=== PATIENT | male | born 1955 | race Caucasian/White ===

== ENCOUNTER 2022-01-11 15:45 | Emergency (ER) | payer MEDICARE, OTHER ==
--- NOTE | 2022-01-11 16:12 | ERPHSYRPT ---
- History of Present Illness Time Seen by Provider: 01/11/22 16:12 Historian: patient Exam Limitations: no limitations Physician History: This is a 66-year-old white male patient of Dr. Mason who for over a week has had abdominal pain with nausea vomiting and bloating of his abdomen. Patient was seen at [facility] in [facility] this past Sunday prior to arrival. He was diagnosed with nausea vomiting and low potassium level. He was provided with prescription for both Zofran and potassium supplementation. Patient does have a significant cardiac history. He has no chest pain or shortness of breath at this time. His collar tailor is Dr. Torres Timing/Duration: today, worse Abdominal Pain Onset Location: generalized abdomen Pain Radiation: no radiation Severity of Pain-Max: moderate Severity of Pain-Current: mild Modifying Factors: Improves With: vomiting (To moderate) Associated Symptoms: nausea, vomiting, No chest pain, No shortness of breath Previous symptoms: same symptoms as today, recently seen, recently treated Allergies/Adverse Reactions: No Known Drug Allergies Allergy (Unverified 01/11/22 17:10) Travel Risk - International Travel Have you traveled outside of the country in past 3 weeks: No - Coronavirus Screening Are you exhibiting any of the following symptoms?: No Close contact with a COVID-19 positive Pt in past 14-21 Days: No - Review of Systems Constitutional: No Symptoms Eyes: No Symptoms Ears, Nose, & Throat: No Symptoms Respiratory: No Symptoms Cardiac: No Symptoms Abdominal/Gastrointestinal: Abdominal Pain, Nausea, Vomiting, Appetite Changes, No Diarrhea, No Constipation Genitourinary Symptoms: No Symptoms Musculoskeletal: No Symptoms Skin: No Symptoms Neurological: No Symptoms Psychological: No Symptoms Endocrine: No Symptoms Hematologic/Lymphatic: No Symptoms Immunological/Allergic: No Symptoms All Other Systems: Reviewed and Negative - Past Medical History Pertinent Past Medical History: Yes - Nursing Vital Signs Nursing Vital Signs: Initial Vital Signs Temperature 97.2 F 01/11/22 17:02 Pulse Rate 67 01/11/22 17:02 Respiratory Rate 18 01/11/22 17:02 Blood Pressure 154/102 01/11/22 17:02 O2 Sat by Pulse Oximetry 97 01/11/22 17:02 Pain Scale Pain Intensity 5 - Physical Exam General Appearance: no apparent distress, alert, anxiety, obese Eye Exam: PERRL/EOMI, eyes nml inspection Ears, Nose, Throat Exam: normal ENT inspection, moist mucous membranes Neck Exam: normal inspection, non-tender, supple, full range of motion Respiratory Exam: normal breath sounds, lungs clear, airway intact, No chest tenderness, No respiratory distress Cardiovascular Exam: regular rate/rhythm, normal heart sounds, normal peripheral pulses Gastrointestinal/Abdomen Exam: soft, normal bowel sounds, tenderness (Mild diffuse), distention (Mild diffuse), guarding (Mild diffuse with palpation), No rebound Rectal Exam: not done Back Exam: normal inspection, normal range of motion, No CVA tenderness, No vertebral tenderness Extremity Exam: normal inspection, normal range of motion, pelvis stable Neurologic Exam: alert, oriented x 3, cooperative, press leader II-XII nml as tested, normal mood/affect, nml cerebellar function, nml station & gait, sensation nml Skin Exam: normal color, warm, dry Lymphatic Exam: No adenopathy SpO2 Interpretation: normal O2 Delivery: Room Air - Course Nursing assessment & vital signs reviewed: Yes EKG Interpreted by Me: RATE (62), Sinus Rhythm, Left [place] Deviation, NORMAL INTERVALS, NORMAL QRS, NORMAL ST-T, Other (Acute ischemic changes on today's EKG.) Ordered Tests: Active Orders 24 hr Category Date Time Status EKG-ER Only STAT Care 01/11/22 16:57 Active IV Insertion STAT Care 01/11/22 16:57 Active ABDOMEN AND PELVIS W/0 CONTRAS [CT] Stat Exams 01/11/22 17:00 Taken AMYLASE Stat Lab 01/11/22 16:50 Completed CBC W DIFF Stat Lab 01/11/22 16:50 Completed CMP Stat Lab 01/11/22 16:50 Completed LIPASE Stat Lab 01/11/22 16:50 Completed Lactic Acid Stat Lab 01/11/22 17:22 Completed TROPONIN Q4H Lab 01/11/22 16:50 Completed TROPONIN Q4H Lab 01/11/22 21:00 Ordered TROPONIN Q4H Lab 01/12/22 01:00 Ordered UA W/RFX CULTURE Stat Lab 01/11/22 17:06 Completed Medication Summary Discontinued Medications Generic Name Dose Route Start Last Admin Trade Name Freq PRN Reason Stop Dose Admin Hydromorphone HCl 1 mg 01/11/22 16:57 01/11/22 18:09 Hydromorphone 1 Mg/1ml Inj 1 Mg/Ml Syringe IV 01/11/22 16:58 1 mg STAT ONE Administration Hydromorphone HCl Confirm 01/11/22 18:01 Hydromorphone 1 Mg/1ml Inj 1 Mg/Ml Syringe Administered 01/11/22 18:02 Dose 1 mg .ROUTE .STK-MED ONE Sodium Chloride 1,000 mls @ 999 mls/hr 01/11/22 16:57 01/11/22 18:05 Sodium Chloride 0.9% 1000 Ml IV 01/11/22 17:57 999 mls/hr .Q1H1M STA Administration Sodium Chloride Confirm 01/11/22 18:01 Sodium Chloride 0.9% 1000 Ml Administered 01/11/22 18:02 Dose 1,000 mls @ ud .ROUTE .STK-MED ONE Ondansetron HCl 4 mg 01/11/22 16:57 01/11/22 18:07 Ondansetron Hcl 4 Mg/2 Ml Vial IV 01/11/22 16:58 4 mg STAT ONE Administration Ondansetron HCl Confirm 01/11/22 18:01 Ondansetron Hcl 4 Mg/2 Ml Vial Administered 01/11/22 18:02 Dose 4 mg .ROUTE .STK-MED ONE Lab/Rad Data: Laboratory Result Diagrams 01/11/22 16:50 01/11/22 16:50 Laboratory Results 01/11/22 01/11/22 01/11/22 Range/Units 17:22 17:06 16:50 WBC (4.0-10.5) x10^3/uL RBC (4.1-5.6) x10^6/uL Hgb (12.5-18.0) g/dL Hct (42-50) % MCV (78-100) fL MCH (26-32) pg MCHC (32-36) g/dL RDW (11.5-14.0) % Plt Count (150-450) x10^3/uL MPV (7.5-11.0) fL Gran % (36.0-66.0) % Immature Gran % (Auto) (0.00-0.4) % Nucleat RBC Rel Count (0.00-0.1) % Eos # (Auto) (0-0.5) x10^3/uL Immature Gran # (Auto) (0.00-0.03) x10^3u/L Absolute Lymphs (auto) (1.0-4.6) x10^3/uL Absolute Monos (auto) (0.0-1.3) x10^3/uL Absolute Nucleated RBC (0.00-0.01) x10^3u/L Lymphocytes % (24.0-44.0) % Monocytes % (0.0-12.0) % Eosinophils % (0.00-5.0) % Basophils % (0.0-0.4) % Absolute Granulocytes (1.4-6.9) x10^3/uL Basophils # (0-0.4) x10^3/uL Sodium (137-145) mmol/L Potassium (3.5-5.1) mmol/L Chloride (98-107) mmol/L Carbon Dioxide (22-30) mmol/L Anion Gap (5-15) MEQ/L BUN (9-20) mg/dL Creatinine (0.66-1.25) mg/dL Estimated GFR ML/MIN Glucose (74-106) mg/dL Lactic Acid 1.3 (0.4-2.0) Calcium (8.4-10.2) mg/dL Total Bilirubin (0.2-1.3) mg/dL AST (17-59) U/L ALT (0-50) U/L Alkaline Phosphatase (38-126) U/L Troponin I < 0.012 (0.000-0.034) ng/mL Serum Total Protein (6.3-8.2) g/dL Albumin (3.5-5.0) g/dL Amylase (30-110) U/L Lipase (23-300) U/L Urinalys Dipstick Clnc MAIN LAB Urine Color YELLOW (YELLOW) Urine Appearance CLEAR (CLEAR) Urine pH 7.0 (5-6) Ur Specific [place] 1.020 (1.005-1.025) POC Urine Protein Conf NEGATIVE (Negative) Urine Ketones NEGATIVE (NEGATIVE) Urine Nitrite NEGATIVE (NEGATIVE) Urine Bilirubin NEGATIVE (NEGATIVE) Urine Urobilinogen 0.2 (0-1) mg/dL Urine Leukocytes NEGATIVE (NEGATIVE) Urine WBC (Auto) 0-2 (0-5) /HPF Urine RBC (Auto) NONE (0-2) /HPF U Epithel Cells (Auto) Not Reportable Urine Bacteria (Auto) RARE (NEGATIVE) /HPF Urine RBC NEGATIVE (0-5) Juan F/ul Urine Mucus (Auto) SLIGHT A (NEGATIVE) /HPF Ur Culture Indicated? NO Urine Glucose NEGATIVE (NEGATIVE) mg/dL 01/11/22 01/11/22 Range/Units 16:50 16:50 WBC 8.3 (4.0-10.5) x10^3/uL RBC 5.33 (4.1-5.6) x10^6/uL Hgb 16.4 (12.5-18.0) g/dL Hct 46.5 (42-50) % MCV 87.2 (78-100) fL MCH 30.8 (26-32) pg MCHC 35.3 (32-36) g/dL RDW 12.9 (11.5-14.0) % Plt Count 207 (150-450) x10^3/uL MPV 9.0 (7.5-11.0) fL Gran % 66.2 H (36.0-66.0) % Immature Gran % (Auto) 0.2 (0.00-0.4) % Nucleat RBC Rel Count 0.0 (0.00-0.1) % Eos # (Auto) 0.12 (0-0.5) x10^3/uL Immature Gran # (Auto) 0.02 (0.00-0.03) x10^3u/L Absolute Lymphs (auto) 1.79 (1.0-4.6) x10^3/uL Absolute Monos (auto) 0.78 (0.0-1.3) x10^3/uL Absolute Nucleated RBC 0.00 (0.00-0.01) x10^3u/L Lymphocytes % 21.5 L (24.0-44.0) % Monocytes % 9.4 (0.0-12.0) % Eosinophils % 1.4 (0.00-5.0) % Basophils % 1.3 (0.0-0.4) % Absolute Granulocytes 5.51 (1.4-6.9) x10^3/uL Basophils # 0.11 (0-0.4) x10^3/uL Sodium 134 L (137-145) mmol/L Potassium 3.7 (3.5-5.1) mmol/L Chloride 90 L (98-107) mmol/L Carbon Dioxide 38 H (22-30) mmol/L Anion Gap 10.1 (5-15) MEQ/L BUN 15 (9-20) mg/dL Creatinine 0.81 (0.66-1.25) mg/dL Estimated GFR > 60.0 ML/MIN Glucose 118 H (74-106) mg/dL Lactic Acid (0.4-2.0) Calcium 9.6 (8.4-10.2) mg/dL Total Bilirubin 1.10 (0.2-1.3) mg/dL AST 41 (17-59) U/L ALT 30 (0-50) U/L Alkaline Phosphatase 100 (38-126) U/L Troponin I (0.000-0.034) ng/mL Serum Total Protein 7.6 (6.3-8.2) g/dL Albumin 4.6 (3.5-5.0) g/dL Amylase 109 (30-110) U/L Lipase 359 H (23-300) U/L Urinalys Dipstick Clnc Urine Color (YELLOW) Urine Appearance (CLEAR) Urine pH (5-6) Ur Specific [place] (1.005-1.025) POC Urine Protein Conf (Negative) Urine Ketones (NEGATIVE) Urine Nitrite (NEGATIVE) Urine Bilirubin (NEGATIVE) Urine Urobilinogen (0-1) mg/dL Urine Leukocytes (NEGATIVE) Urine WBC (Auto) (0-5) /HPF Urine RBC (Auto) (0-2) /HPF U Epithel Cells (Auto) Urine Bacteria (Auto) (NEGATIVE) /HPF Urine RBC (0-5) Juan F/ul Urine Mucus (Auto) (NEGATIVE) /HPF Ur Culture Indicated? Urine Glucose (NEGATIVE) mg/dL - Progress Progress: improved, pain not gone completely Progress Note: 01/11/22 19:31 CAT scan of the abdomen pelvis without contrast shows a normal appendix. There is sigmoid diverticulosis without diverticulitis. Remaining AP CT scan negative 01/11/22 19:33 Medical decision making: This patient has a mildly elevated lipase but a normal amylase. There is no radiographic evidence of acute pancreatitis. I do not feel the patient needs admission to the hospital. We will have him avoid fatty greasy spicy foods and to consume clear liquids well before advancing his diet. We will have him keep his appointment with his collar tailor that he has tomorrow and follow-up with his primary care physician for further evaluation management. Counseled pt/family regarding: lab results, diagnosis, need for follow-up, rad results - Departure Departure Disposition: Home Clinical Impression: Serum lipase elevation, Abdominal pain Condition: Stable Critical Care Time: No Referrals: DAVID MASON MD [Primary Care Provider] - Follow up/PCP as directed Additional Instructions: Clear liquid diet. Do not advance your diet until you have been drinking clear liquids well. Avoid fatty greasy spicy foods. Keep your appointments with your primary care physician and your collar tailor.
[2022-01-11 17:06] LABS: Absolute Neutrophil Ct (ANC) 5.51 x10^3/uL (1.4-6.9); Basophil (Absolute #) 0.11 x10^3/uL (0-0.4); Eosinophil % 1.4 % (0.00-5.0); Eosinophil (Absolute #) 0.12 x10^3/uL (0-0.5); Hematocrit 46.5 % (42-50); Hemoglobin 16.4 g/dL (12.5-18.0); Lymphocyte (Absolute #) 1.79 x10^3/uL (1.0-4.6); Lymphocytes % 21.5 % (24.0-44.0); Mean Cell Volume 87.2 fL (78-100); Mean Corpuscular Hemoglobin 30.8 pg (26-32); Mean Corpuscular Hgb Concent. 35.3 g/dL (32-36); Monocyte (Absolute #) 0.78 x10^3/uL (0.0-1.3); Monocytes % 9.4 % (0.0-12.0); Neutrophil % 66.2 % (36.0-66.0); Platelet Count 207 x10^3/uL (150-450); Red Blood Count 5.33 x10^6/uL (4.1-5.6); Red Cell Distribution Width 12.9 % (11.5-14.0); White Blood Count 8.3 x10^3/uL (4.0-10.5)
[2022-01-11 17:19] LABS: ALBUMIN 4.6 g/dL (3.5-5.0); ALKALINE PHOSPHATASE 100 U/L (38-126); AMYLASE 109 U/L (30-110); ANION GAP 10.1 MEQ/L (5-15); BLOOD UREA NITROGEN 15 mg/dL (9-20); CHLORIDE 90 mmol/L (98-107); Calcium 9.6 mg/dL (8.4-10.2); Carbon Dioxide 38 mmol/L (22-30); Creatinine 1 0.81 mg/dL (0.66-1.25); EST GLOMERULAR FILTRATION RATE > 60.0 ML/MIN; Glucose 118 mg/dL (74-106); LIPASE 359 U/L (23-300); Potassium 3.7 mmol/L (3.5-5.1); SGOT/AST 41 U/L (17-59); SGPT/ALT 30 U/L (0-50); SODIUM 134 mmol/L (137-145); Total Protein 7.6 g/dL (6.3-8.2)
[2022-01-11 17:27] LABS: Bacteria RARE /HPF (NEGATIVE); Mucus SLIGHT /HPF (NEGATIVE); WBC 0-2 /HPF (0-5)
[2022-01-11 17:33] LABS: Appearance CLEAR (CLEAR); Bilirubin NEGATIVE (NEGATIVE); Glucose NEGATIVE (NEGATIVE)
[2022-01-11 17:34] LABS: Dipstick done @ ? MAIN LAB; Ketones NEGATIVE (NEGATIVE); Nitrite NEGATIVE (NEGATIVE); Protein,Urine Dip NEGATIVE (Negative); RBC NEGATIVE Ery/ul (0-5); Urobilinogen 0.2 mg/dL (0-1)
[2022-01-11 17:35] LABS: Urine Cultured Indicated? NO
[2022-01-11] MEDS ORDERED: Zofran 4 MG/2 ML VIAL ONE (18:01)
[2022-01-11] MEDS ORDERED: Hydromorphone 1 mg/ml Injection ONE (18:01)
[2022-01-11] MEDS ORDERED: Sodium Chloride 0.9% 1000 ML 1,000 ML ONE (18:01)
[2022-01-11] MEDS: Sodium Chloride 0.9% 1000 ML 1,000 ML IV STA (18:05)
[2022-01-11] MEDS: Zofran 4 MG/2 ML VIAL IV ONE (18:07)
[2022-01-11] MEDS: Hydromorphone 1 mg/ml Injection IV ONE (18:09)
[2022-01-11 19:37] VITALS: O2SAT 98
[2022-01-11 20:05] VITALS: BP 160/108; PULSE 88
--- NOTE | 2022-01-12 08:33 | XRAY ---
Indication: Abdomen pain, vomiting, and nausea one week. Reflux. Multiple contiguous axial images obtained through the abdomen and pelvis without contrast. Comparison: None Lung bases clear of infiltrate and effusion. Heart not enlarged. Small hiatal hernia. Noncontrasted stomach and bowel loops appear nonobstructed with normal appendix. Mild scattered colonic diverticulosis without diverticulitis. Left kidney demonstrates 2.2 x 4.5 cm and right kidney demonstrates 1.2 cm cysts. Tiny splenic calcified granulomas. No free fluid/air. Remaining liver, gallbladder, pancreas, spleen, adrenal glands, kidneys, ureters, and bladder are unremarkable for noncontrast exam. Mild scattered aortoiliac calcifications without AAA. Osseous structures intact with minimal/mild degenerative changes throughout the thoracolumbar spine. Small inferior L3/L4 Schmorl nodes. No ventral or inguinal hernias. Impression: 1. Small hiatal hernia, colonic diverticulosis, bilateral renal cysts, arteriosclerotic disease, chronic bony findings, and old granulomatous disease. 2. Remaining CT abdomen/pelvis without contrast exam is negative.
== END 2022-01-11 20:06 | disposition home or self-care (01) ==
LOC: ED 15:45
DX: R79.89 Other specified abnormal findings of blood chemistry (principal); R10.84 Generalized abdominal pain; R11.2 Nausea with vomiting, unspecified
CPT/HCPCS: 36000; 36415; 74176; 80053; 81015; 82150; 83605; 83690; 84484; 85025; 93005; 96374; 96375; 99284; J1170; J2405

== ENCOUNTER 2022-01-15 19:41 | Emergency (ER) | payer MEDICARE, OTHER ==
[2022-01-15] MEDS ORDERED: PROTONIX 40 MG IV IV ONE ×2 (20:00→20:17)
[2022-01-15] MEDS ORDERED: Sodium Chloride 0.9% 1000 ML 1,000 ML IV STA ×2 (20:00→21:40)
[2022-01-15] MEDS ORDERED: Reglan 10 MG/2 ML IV ONE (20:00)
[2022-01-15] MEDS ORDERED: Sodium Chloride 0.9% 1000 ML 1,000 ML ONE ×2 (20:17→21:47)
[2022-01-15] MEDS ORDERED: Reglan 10 MG/2 ML ONE (20:17)
[2022-01-15 20:42] LABS: Absolute Neutrophil Ct (ANC) 3.85 x10^3/uL (1.4-6.9); Basophil (Absolute #) 0.12 x10^3/uL (0-0.4); Eosinophil % 2.4 % (0.00-5.0); Eosinophil (Absolute #) 0.17 x10^3/uL (0-0.5); Hematocrit 45.9 % (42-50); Hemoglobin 15.7 g/dL (12.5-18.0); Lymphocyte (Absolute #) 2.36 x10^3/uL (1.0-4.6); Lymphocytes % 32.7 % (24.0-44.0); Mean Cell Volume 88.8 fL (78-100); Mean Corpuscular Hemoglobin 30.4 pg (26-32); Mean Corpuscular Hgb Concent. 34.2 g/dL (32-36); Mean Platelet Volume 10.9 fL (7.5-11.0); Monocyte (Absolute #) 0.69 x10^3/uL (0.0-1.3); Monocytes % 9.6 % (0.0-12.0); Neutrophil % 53.3 % (36.0-66.0); Platelet Count 209 x10^3/uL (150-450); Red Blood Count 5.17 x10^6/uL (4.1-5.6); Red Cell Distribution Width 12.7 % (11.5-14.0); White Blood Count 7.2 x10^3/uL (4.0-10.5)
[2022-01-15 21:00] LABS: ALBUMIN 4.1 g/dL (3.5-5.0); ALKALINE PHOSPHATASE 99 U/L (38-126); AMYLASE 91 U/L (30-110); BLOOD UREA NITROGEN 12 mg/dL (9-20); CHLORIDE 96 mmol/L (98-107); Calcium 8.6 mg/dL (8.4-10.2); Carbon Dioxide 26 mmol/L (22-30); Creatinine 1 0.69 mg/dL (0.66-1.25); EST GLOMERULAR FILTRATION RATE > 60.0 ML/MIN; Glucose 135 mg/dL (74-106); LIPASE 137 U/L (23-300); Potassium 3.1 mmol/L (3.5-5.1); SGOT/AST 22 U/L (17-59); SGPT/ALT 25 U/L (0-50); SODIUM 130 mmol/L (137-145); Total Protein 6.8 g/dL (6.3-8.2)
[2022-01-15 21:30] LABS: INR 1.01 (0.8-3.0); PROTIME 10.7 SECONDS (9.4-12.5)
[2022-01-15] MEDS ORDERED: FLAGYL 500 MG IVPB 500 MG/100 ML BAG IV STA (21:39)
[2022-01-15] MEDS ORDERED: K-LYTE PO ONE (21:40)
[2022-01-15] MEDS ORDERED: K-LYTE ONE (21:44)
[2022-01-15] MEDS ORDERED: FLAGYL 500 MG IVPB 500 MG/100 ML BAG IV ONE (21:45)
--- NOTE | 2022-01-15 21:47 | ERPHSYRPT ---
- History of Present Illness Time Seen by Provider: 01/15/22 20:00 Historian: patient Exam Limitations: no limitations Patient Subjective Stated Complaint: pt states he has hadwhat feels like indigestion for a month, one week ago it became worse when he ate at a restaurant. he has been vomiting and naseated and then has a headache that follows. no diarrhea or chest or abdominal pain. pt states he has been to ER three times in the last week. Triage Nursing Assessment: pt is alert and oriented, appears to have some pain in right side of abomen when palpated. bowel sounds hypoactive in all 4 quadrants. Physician History: Patient is a 66-year-old white male who presents with a complaint of being sick for a month with nausea vomiting and epigastric painHe was seen in this ER on 11 January had a work-up that included a CT scan was given fluids felt improved and was released. He later went to [facility] where he had a repeated work-up did not include a CT scan at that time but his work-up did find a potass ium of 2.8. He was released. Tonight he comes in with a complaint of discomfort in the abdomen primarily in the epigastric area he continues with nausea and vomiting. He did have a nuclear stress test from Dr. Richards this week which apparently was negative. Timing/Duration: week(s) (4) Activities at Onset: none Quality: cramping, fullness Abdominal Pain Onset Location: epigastric Pain Radiation: no radiation Severity of Pain-Max: moderate Severity of Pain-Current: moderate Associated Symptoms: nausea, vomiting Previous symptoms: same symptoms as today Allergies/Adverse Reactions: No Known Drug Allergies Allergy (Unverified 01/11/22 17:10) Hx Tetanus, Diphtheria Vaccination/Date Given: No Hx Influenza Vaccination/Date Given: No Hx Pneumococcal Vaccination/Date Given: No Travel Risk - International Travel Have you traveled outside of the country in past 3 weeks: No - Coronavirus Screening Are you exhibiting any of the following symptoms?: No Close contact with a COVID-19 positive Pt in past 14-21 Days: No - Vaccine Status Have you recieved a Covid-19 vaccination: Yes 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 - Vaccination Dates Date of 2cond Vaccination (if applicable): unknown - Review of Systems Constitutional: No Fever, No Chills Eyes: No Symptoms Ears, Nose, & Throat: No Symptoms Respiratory: No Cough, No Dyspnea Cardiac: No Chest Pain, No Edema, No Syncope Abdominal/Gastrointestinal: Abdominal Pain, Nausea, Vomiting, No Diarrhea Genitourinary Symptoms: No Dysuria Musculoskeletal: No Back Pain, No Neck Pain Skin: No Rash Neurological: No Dizziness, No Focal Weakness, No Sensory Changes Psychological: No Symptoms Endocrine: No Symptoms All Other Systems: Reviewed and Negative - Past Medical History Pertinent Past Medical History: Yes Cardiac History: Coronary Artery Disease - Past Surgical History Cardiac: Cardiac Catheterization, Cardiac Stent - Social History Smoking Status: Former smoker Exposure to second hand smoke: No Drug Use: none Patient Lives Alone: No - Nursing Vital Signs Nursing Vital Signs: Initial Vital Signs Pulse Rate 100 H 01/15/22 19:48 Respiratory Rate 18 01/15/22 19:48 Blood Pressure 168/137 01/15/22 19:48 O2 Sat by Pulse Oximetry 97 01/15/22 19:48 Pain Scale Pain Intensity 0 - Physical Exam General Appearance: mild distress, alert Eye Exam: PERRL/EOMI, eyes nml inspection Ears, Nose, Throat Exam: normal ENT inspection, pharynx normal, moist mucous membranes Neck Exam: normal inspection, non-tender, supple, full range of motion Respiratory Exam: normal breath sounds, lungs clear, No respiratory distress Cardiovascular Exam: regular rate/rhythm, normal heart sounds Gastrointestinal/Abdomen Exam: normal bowel sounds, tenderness (Tenderness in the epigastric and right upper quadrant.), guarding, No mass, No rebound Back Exam: normal inspection, normal range of motion, No CVA tenderness, No vertebral tenderness Extremity Exam: normal inspection, normal range of motion, pelvis stable Neurologic Exam: alert, oriented x 3, cooperative, normal mood/affect, nml cerebellar function, sensation nml, No motor deficits Skin Exam: normal color, warm, dry SpO2: 95 - Course Nursing assessment & vital signs reviewed: Yes - CT Exams Abdomen/Pelvis CT Interpretation: Tele-radiologist Report Ordered Tests: Active Orders 24 hr Category Date Time Status IV Insertion STAT Care 01/15/22 20:00 Active ABDOMEN AND PELVIS W CONTRAST [CT] Stat Exams 01/15/22 20:01 Taken AMYLASE Stat Lab 01/15/22 20:39 Completed CBC W DIFF Stat Lab 01/15/22 20:39 Completed CMP Stat Lab 01/15/22 20:39 Completed LIPASE Stat Lab 01/15/22 20:39 Completed Lactic Acid Stat Lab 01/15/22 20:15 Completed PROTIME WITH INR Stat Lab 01/15/22 20:39 Completed Medication Summary Generic Name Dose Route Start Last Admin Trade Name Marcel CONNELLN Reason Stop Dose Admin Sodium Chloride 1,000 mls @ 999 mls/hr 01/15/22 21:40 01/15/22 21:49 Sodium Chloride 0.9% 1000 Ml IV 01/15/22 22:40 999 mls/hr .Q1H1M STA Administration Discontinued Medications Generic Name Dose Route Start Last Admin Trade Name Marcel CONNELLN Reason Stop Dose Admin Sodium Chloride 1,000 mls @ 999 mls/hr 01/15/22 20:00 01/15/22 20:19 Sodium Chloride 0.9% 1000 Ml IV 01/15/22 21:00 999 mls/hr .Q1H1M STA Administration Sodium Chloride Confirm 01/15/22 20:17 Sodium Chloride 0.9% 1000 Ml Administered 01/15/22 20:18 Dose 1,000 mls @ ud .ROUTE .STK-MED ONE Metronidazole 500 mg in 100 mls @ 200 mls/hr 01/15/22 21:39 01/15/22 21:53 Flagyl 500 Mg Ivpb IV 01/15/22 22:08 200 ml/hr STAT STA 200 mls/hr Administration Metronidazole Confirm 01/15/22 21:45 Flagyl 500 Mg Ivpb Administered 01/15/22 21:46 Dose 500 mg in 100 mls @ ud IV .STK-MED ONE Sodium Chloride Confirm 01/15/22 21:47 Sodium Chloride 0.9% 1000 Ml Administered 01/15/22 21:48 Dose 1,000 mls @ ud .ROUTE .STK-MED ONE Metoclopramide HCl 10 mg 01/15/22 20:00 01/15/22 20:21 Metoclopramide Hcl 10 Mg/2 Ml Vial IV 01/15/22 20:01 10 mg STAT ONE Administration Metoclopramide HCl Confirm 01/15/22 20:17 Metoclopramide Hcl 10 Mg/2 Ml Vial Administered 01/15/22 20:18 Dose 10 mg .ROUTE .STK-MED ONE Pantoprazole Sodium 40 mg 01/15/22 20:00 01/15/22 20:22 Pantoprazole 40 Mg Vial IV 01/15/22 20:01 40 mg STAT ONE Administration Pantoprazole Sodium Confirm 01/15/22 20:17 Pantoprazole 40 Mg Vial Administered 01/15/22 20:18 Dose 40 mg IV .STK-MED ONE Potassium Bicarbonate 50 meq 01/15/22 21:40 01/15/22 21:50 Potassium Bicarbonate 25 Meq Tab PO 01/15/22 21:41 50 meq STAT ONE Administration Potassium Bicarbonate Confirm 01/15/22 21:44 Potassium Bicarbonate 25 Meq Tab Administered 01/15/22 21:45 Dose 50 meq .ROUTE .STK-MED ONE Lab/Rad Data: Laboratory Result Diagrams 01/15/22 20:39 01/15/22 20:39 Laboratory Results 01/15/22 01/15/22 01/15/22 Range/Units 20:39 20:39 20:39 WBC 7.2 (4.0-10.5) x10^3/uL RBC 5.17 (4.1-5.6) x10^6/uL Hgb 15.7 (12.5-18.0) g/dL Hct 45.9 (42-50) % MCV 88.8 (78-100) fL MCH 30.4 (26-32) pg MCHC 34.2 (32-36) g/dL RDW 12.7 (11.5-14.0) % Plt Count 209 (150-450) x10^3/uL MPV 10.9 (7.5-11.0) fL Gran % 53.3 (36.0-66.0) % Immature Gran % (Auto) 0.3 (0.00-0.4) % Nucleat RBC Rel Count 0.0 (0.00-0.1) % Eos # (Auto) 0.17 (0-0.5) x10^3/uL Immature Gran # (Auto) 0.02 (0.00-0.03) x10^3u/L Absolute Lymphs (auto) 2.36 (1.0-4.6) x10^3/uL Absolute Monos (auto) 0.69 (0.0-1.3) x10^3/uL Absolute Nucleated RBC 0.00 (0.00-0.01) x10^3u/L Lymphocytes % 32.7 (24.0-44.0) % Monocytes % 9.6 (0.0-12.0) % Eosinophils % 2.4 (0.00-5.0) % Basophils % 1.7 (0.0-0.4) % Absolute Granulocytes 3.85 (1.4-6.9) x10^3/uL Basophils # 0.12 (0-0.4) x10^3/uL PT 10.7 (9.4-12.5) SECONDS INR 1.01 (0.8-3.0) Sodium 130 L (137-145) mmol/L Potassium 3.1 L (3.5-5.1) mmol/L Chloride 96 L (98-107) mmol/L Carbon Dioxide 26 (22-30) mmol/L Anion Gap 11.0 (5-15) MEQ/L BUN 12 (9-20) mg/dL Creatinine 0.69 (0.66-1.25) mg/dL Estimated GFR > 60.0 ML/MIN Glucose 135 H (74-106) mg/dL Lactic Acid (0.4-2.0) Calcium 8.6 (8.4-10.2) mg/dL Total Bilirubin 0.90 (0.2-1.3) mg/dL AST 22 (17-59) U/L ALT 25 (0-50) U/L Alkaline Phosphatase 99 (38-126) U/L Serum Total Protein 6.8 (6.3-8.2) g/dL Albumin 4.1 (3.5-5.0) g/dL Amylase 91 (30-110) U/L Lipase 137 (23-300) U/L 01/15/22 Range/Units 20:15 WBC (4.0-10.5) x10^3/uL RBC (4.1-5.6) x10^6/uL Hgb (12.5-18.0) g/dL Hct (42-50) % MCV (78-100) fL MCH (26-32) pg MCHC (32-36) g/dL RDW (11.5-14.0) % Plt Count (150-450) x10^3/uL MPV (7.5-11.0) fL Gran % (36.0-66.0) % Immature Gran % (Auto) (0.00-0.4) % Nucleat RBC Rel Count (0.00-0.1) % Eos # (Auto) (0-0.5) x10^3/uL Immature Gran # (Auto) (0.00-0.03) x10^3u/L Absolute Lymphs (auto) (1.0-4.6) x10^3/uL Absolute Monos (auto) (0.0-1.3) x10^3/uL Absolute Nucleated RBC (0.00-0.01) x10^3u/L Lymphocytes % (24.0-44.0) % Monocytes % (0.0-12.0) % Eosinophils % (0.00-5.0) % Basophils % (0.0-0.4) % Absolute Granulocytes (1.4-6.9) x10^3/uL Basophils # (0-0.4) x10^3/uL PT (9.4-12.5) SECONDS INR (0.8-3.0) Sodium (137-145) mmol/L Potassium (3.5-5.1) mmol/L Chloride (98-107) mmol/L Carbon Dioxide (22-30) mmol/L Anion Gap (5-15) MEQ/L BUN (9-20) mg/dL Creatinine (0.66-1.25) mg/dL Estimated GFR ML/MIN Glucose (74-106) mg/dL Lactic Acid 1.2 (0.4-2.0) Calcium (8.4-10.2) mg/dL Total Bilirubin (0.2-1.3) mg/dL AST (17-59) U/L ALT (0-50) U/L Alkaline Phosphatase (38-126) U/L Serum Total Protein (6.3-8.2) g/dL Albumin (3.5-5.0) g/dL Amylase (30-110) U/L Lipase (23-300) U/L - Progress Progress: improved - Departure Departure Disposition: Home Clinical Impression: Enteritis Condition: Stable Critical Care Time: No Referrals: DAVID MASON MD [Primary Care Provider] - Follow up/PCP as directed Instructions: Inflammatory Bowel Disease (DC) Prescriptions: Hydrocodone/Acetaminophen [Hydrocodone-Acetamin 5-325 mg] 1 tab PO Q6HPRN PRN 3 Days #12 tablet MDD 4 PRN Reason: Pain Metronidazole 500 mg [Flagyl 500 MG] 500 mg PO TID #21 tablet PANTOPRAZOLE 40 mg Tablet [Protonix 40MG Tablet] 40 mg PO QAM 30 Days #30 tab Metoclopramide HCl 10 mg [Reglan 10 MG] 10 mg PO ACHS 12 Days #50 tablet
[2022-01-15 22:50] LABS: INFLUENZA A NEGATIVE (NEGATIVE); INFLUENZA B NEGATIVE (NEGATIVE); RESPIRATORY SYNCTIAL VIRUS NEGATIVE (Negative); SARS-CoV-2 Xpert Express NEGATIVE (NEGATIVE)
[2022-01-15 23:06] VITALS: BP 143/97; PULSE 78; O2SAT 97
--- NOTE | 2022-01-16 08:42 | XRAY ---
Indication: Abdomen pain, nausea, and vomiting. Multiple contiguous images obtained through the abdomen and pelvis using 80 cc Isovue 370 contrast. Comparison: January 11, 2022 Lung bases remain clear. Heart not enlarged. Stable small hiatal hernia. Noncontrasted stomach and bowel loops remain nonobstructed again with normal appendix. Stable colonic diverticulosis without diverticulitis. Normal visceral enhancement and renal excretion. Stable bilateral renal cysts. No free fluid/air. Remaining liver, gallbladder, pancreas, spleen, adrenal glands, kidneys, ureters, and bladder are unremarkable. Stable mild scattered aortoiliac calcifications. No AAA or pathologic rectoperineal lymphadenopathy. Osseous structures intact. Impression: No change compared to CT 4 days ago. Stable small hiatal hernia, colonic diverticulosis, bilateral renal cysts, and arteriosclerotic disease. Comment: Preliminary interpretation made by [facility]. No critical discrepancy.
== END 2022-01-15 23:06 | disposition home or self-care (01) ==
LOC: ED 19:41
DX: K52.9 Noninfective gastroenteritis and colitis, unspecified (principal); R10.13 Epigastric pain; R11.2 Nausea with vomiting, unspecified; I25.10 Atherosclerotic heart disease of native coronary artery without angina pectoris; Z79.891 Long term (current) use of opiate analgesic; Z20.828 Contact with and (suspected) exposure to other viral communicable diseases
CPT/HCPCS: 0241U; 36000; 36415; 74177; 80053; 82150; 83605; 83690; 85025; 85610; 96374; 96375; 99284; A9270-GY

== ENCOUNTER 2022-01-31 05:53 | Day surgery (SDC) | payer MEDICARE, OTHER ==
[2022-01-31] MEDS ORDERED: Lactated Ringers 1,000 ML IV SCH (06:30)
[2022-01-31] MEDS ORDERED: DIPRIVAN 200 MG/20 ML IV ONE ×3 (07:20→07:56)
[2022-01-31] MEDS ORDERED: Versed 2 MG/2 ML Injection ONE (07:20)
[2022-01-31] MEDS ORDERED: Xylocaine-Mpf 2% 5 Ml Vial ONE (07:36)
[2022-01-31] MEDS ORDERED: Lactated Ringers 1,000 ML IV ONE (07:54)
[2022-01-31 08:31] VITALS: BP 147/94; PULSE 69; O2SAT 98
--- NOTE | 2022-01-31 10:41 | OP ---
SURGERY DATE/TIME: 01/31/2022 0723 PREOPERATIVE DIAGNOSES: 1) Abdominal pain and vomiting. 2) Colon screening exam. POSTOPERATIVE DIAGNOSES: 1) Mild gastritis. 2) Multiple colon polyps. PROCEDURES: 1) Esophagogastroduodenoscopy with cold forceps biopsy. 2) Colonoscopy with hot snare polypectomies. SURGEON: Dr. Matthew Pak. ANESTHESIA: Medications were given by the anesthesia department. HISTORY: The patient is a 66-year-old white male presenting now for endoscopic evaluation. He had been having trouble with vomiting and abdominal pain over the past couple of weeks but in the last week prior to the examination reported was feeling much better. The patient has never had a colon screening exam and he was suggested to have both upper and lower endoscopy. The patient was appraised of the risks of the procedure including the risk of perforation, phlebitis, untoward reaction to medication, bleeding and missed lesions. The patient verbalized his understanding and desired to have the procedure performed. DESCRIPTION OF PROCEDURE: The patient was given the medications by the anesthesia department. He had continuous pulse oximetry, ECG monitoring and intermittent blood pressure monitoring during the examination. He was placed in the left lateral decubitus position. A bite block was placed and the flexible Olympus gastroscope was used to intubate the oropharynx. A view of the larynx was obtained and was normal. The scope was easily introduced in the esophagus which appeared to be essentially normal throughout its length. The stomach was entered where normal gastric rugal folds were seen and these distended nicely with insufflation of air. The scope was passed along the greater curvature of the stomach to the antrum. Biopsies were obtained from the antrum to rule out the presence of Helicobacter pylori-type organisms. The scope was then advanced through the pylorus and the duodenum inspected and found to be normal. The scope is withdrawn towards the stomach. Again, retroflex view was obtained of the lesser curvature, fundus and cardia regions of the stomach and these appeared to be essentially normal. The scope was then withdrawn from the patient. Next, a digital rectal examination was performed and revealed normal anal sphincter tone, no masses and normal prostate. The flexible Olympus pediatric colonoscope was used to intubate the rectum. A view of the colon was developed sequentially to the cecum. Upon insertion and withdrawal, multiple polyps were removed from the colon using a combination of cold forceps biopsies and hot polypectomy snare. Specimens were retrieved for pathologic evaluation. The scope was removed from the patient who tolerated the procedure well and was sent back to OP recovery in good condition. The prep was noted to be fair.
== END 2022-01-31 08:40 | disposition home or self-care (01) ==
LOC: SDC 05:53
PROVIDERS: ATTEND Family Medicine
DX: Z12.11 Encounter for screening for malignant neoplasm of colon (principal); R10.9 Unspecified abdominal pain; R11.10 Vomiting, unspecified; K29.70 Gastritis, unspecified, without bleeding; D12.2 Benign neoplasm of ascending colon; D12.0 Benign neoplasm of cecum; D12.4 Benign neoplasm of descending colon; D12.5 Benign neoplasm of sigmoid colon; D12.3 Benign neoplasm of transverse colon
CPT/HCPCS: J2250; J2704

== ENCOUNTER 2022-02-13 08:21 | Day surgery (SDC) | payer MEDICARE, OTHER ==
--- NOTE | 2022-02-13 08:00 | HP ---
DATE OF SURGERY: 02/13/2022 HISTORY OF PRESENT ILLNESS: The patient is a 66-year-old with some abdominal pain, nausea and vomiting over the past month or so. He has been to the emergency room three times. Worse with greasy food. Denies any chronic liver problems. No change in bowel movements. Ultrasound no stones. He has a HIDA ejection fraction of 10%. PAST MEDICAL HISTORY: Aortic stenosis. He had some stents back in 2019. Heart disease. Gallbladder disease. Hypertension. PAST SURGICAL HISTORY: Colonoscopy. Cardiac cath and stent in the past. MEDICATIONS: Chlorthalidone, nitroglycerin, atorvastatin, amlodipine. ALLERGIES: LISINOPRIL. FAMILY HISTORY: Hypertension. Heart disease. SOCIAL HISTORY: Former smoker. No alcohol abuse. LAB DATA AND TESTS: He had a HIDA scan with 10% ejection fraction. REVIEW OF SYSTEMS: Fourteen systems reviewed. No chest pain or palpitations. Other systems negative or noncontributory as above and per preadmission questionnaire. PHYSICAL EXAMINATION: Height 5'7", weight 190 pounds. BMI 29.76. GENERAL: No acute distress. HEENT: Sclerae nonicteric. NECK: No JVD. CHEST: Equal excursion, nonlabored breathing. CVS: Regular rate and rhythm. ABDOMEN: Soft, mild epigastric and right upper quadrant pain. No peritoneal signs. EXTREMITIES: No significant edema. NEURO: Alert, oriented, moving extremities symmetrically. PSYCH: Appropriate mood and affect. SKIN: Dry. IMPRESSION: Acute exacerbation of chronic cholecystitis, symptomatic biliary dyskinesia. He had a normal HIDA ejection fraction of 10%. I feel the patient will benefit from cholecystectomy. He was shown the gallbladder pamphlet and risk sheet, explained the procedure in detail including but not limited to bleeding or infection, risk of bowel injury or perforation, risk of missed or nondiagnosis or incomplete exam, risk of bowel, bladder or blood vessel injury, risk of bile leak, bile duct injury, retained stone or sludge possibly requiring further procedure either open or ERCP, general risk of anesthesia, deep venous thrombosis, pulmonary embolism, risk of aches, pains, bloating, constipation and/or loose stools possibly even chronic in nature, possible need for open procedure, possibility of no improvement in his symptoms. He may need further work up, and/or testing, endoscopy, other studies or procedures or referrals. He understands and agrees to the planned procedure, will proceed with laparoscopic cholecystectomy with possible open as an outpatient.
[~2022-02-13 08:21] MED LIST: Lactated Ringers 1,000 ML IV ONE; Sensorcaine 0.25% 10 ML ONE
[2022-02-13] MEDS ORDERED: Pepcid 20 MG VIAL IV ONE (08:33)
[2022-02-13] MEDS ORDERED: Reglan 10 MG/2 ML IV ONE (08:33)
[2022-02-13] MEDS ORDERED: Versed 2 MG/2 ML Injection IV PRN (08:33)
[2022-02-13] MEDS ORDERED: Lactated Ringers 1,000 ML IV SCH (09:00)
[2022-02-13] MEDS ORDERED: DUONEB 0.5-3 MG/3 ml Neb IH ONE ×2 (09:29→09:33)
[2022-02-13] MEDS ORDERED: MEFOXIN 2 GM PREMIX** 2 GM/50 ML ML IV ONE (09:39)
[2022-02-13] MEDS ORDERED: MEFOXIN 2 GM PREMIX** 2 GM/50 ML ML IV SCH (10:00)
[2022-02-13] MEDS ORDERED: Pre-Attached Lta Kit TP ONE (10:50)
[2022-02-13] MEDS ORDERED: OFIRMEV 100 ML IV ONE (10:50)
[2022-02-13] MEDS ORDERED: Zofran 4 MG/2 ML VIAL ONE (10:55)
[2022-02-13] MEDS ORDERED: Quelicin Fliptop 200 MG/10 ML ONE (10:55)
[2022-02-13] MEDS ORDERED: Xylocaine-Mpf 2% 5 Ml Vial ONE (10:55)
[2022-02-13] MEDS ORDERED: Decadron 4 MG INJ ONE (10:55)
[2022-02-13] MEDS ORDERED: DIPRIVAN 200 MG/20 ML IV ONE (10:55)
[2022-02-13] MEDS ORDERED: Zemuron 100 MG/10 ML ONE (10:55)
[2022-02-13] MEDS ORDERED: SUBLIMAZE 100 MCG/2 ML ONE (10:56)
[2022-02-13] MEDS ORDERED: Ephedrine Sulfate 50 MG/ML ONE (11:12)
[2022-02-13] MEDS ORDERED: BRIDION 200MG/2ML IV ONE (11:22)
[2022-02-13] MEDS ORDERED: ATROPINE SULFATE 1MG ONE (11:35)
[2022-02-13 13:33] VITALS: O2SAT 97
[2022-02-13 13:35] VITALS: BP 157/92; PULSE 67
--- NOTE | 2022-02-14 09:21 | OP ---
SURGERY DATE/TIME: 02/13/2022 1055 PREOPERATIVE DIAGNOSIS: Acute exacerbation of chronic cholecystitis, symptomatic biliary dyskinesia. POSTOPERATIVE DIAGNOSIS: Acute exacerbation of chronic cholecystitis, symptomatic biliary dyskinesia. PROCEDURE: Laparoscopic cholecystectomy. SURGEON: Dr. Avery Sotelo. GRILL CHEF: Laure Leung, Medical Student III. ANESTHESIA: General. ESTIMATED BLOOD LOSS: Minimal. INDICATIONS: As noted above. Risks and benefits explained in detail but not limited to and consent obtained. DESCRIPTION OF PROCEDURE AND FINDINGS: The patient was taken to the operating room. General anesthesia was induced. Abdomen prepped and draped in usual sterile fashion. After official time out and no disagreement with planned procedure, a transverse incision made in the supraumbilical area. Fascia grasped. Veress needle inserted and tested with saline. Pneumoperitoneum accomplished insufflating opening pressure of 0-15. A 5 mm bladeless port and camera were inserted without difficulty followed by two - 5 mm right upper quadrant ports and 11 mm epigastric port. There is no evidence of any intraabdominal injury secondary to trocar insertion. There was some chronic inflammatory reaction. Dissection carried posterior, lateral to anterior fashion slowly and carefully cystic duct and infundibular junction and main cystic artery isolated until critical view obtained both anteriorly and posteriorly. These were clipped and divided in the usual fashion until critical view obtained. The gallbladder is slowly and carefully dissected free from its dense attachment to the liver bed staying directly on the gallbladder wall. It was quite vascular requiring clipping additional oozing side branches off of the cystic artery/cystic vein as necessary directly on the gallbladder wall. Just prior to releasing from final attachments to the anterior edge of the liver, the liver bed re-inspected. Clips noted in place in the cystic duct and cystic artery stumps. No signs of any active bleeding or bile leakage. It was felt there was no benefit from drain placement. The gallbladder was released. It should be noted that one of the graspers tore a small hole in the gallbladder spilling a small amount of bile. There was no evidence of any visible stone spillage, this was suctioned and irrigated as clear as possible. The gallbladder is placed in the provided sac pulled free and passed off. Copious amount of irrigation accomplished lateral to the liver and subhepatic space irrigating clear. Liver bed re-inspected. Clips noted to be in place cystic duct and cystic artery stumps. No signs of any active bleeding or bile leakage. It was felt there was no benefit in drain placement. The fascial defect at the 12/20 site closed with puncture closure device with #1 Vicryl. Pneumoperitoneum decompressed. The wound irrigated out. Skin incision closed with 4-0 Vicryl. Steri-Strips and sterile dressing applied. 0.25% Marcaine local injected along the skin incision fascial defect. The patient tolerated the procedure well. There were no immediate complications. Findings discussed with the family out in the waiting area.
== END 2022-02-13 13:30 | disposition home or self-care (01) ==
LOC: SDC 08:21
PROVIDERS: ATTEND Surgery
DX: K81.0 Acute cholecystitis (principal); K82.8 Other specified diseases of gallbladder
CPT/HCPCS: 94640; J0330; J0461; J0694; J1100; J2250; J2405; J2704; J3010; A9270-GY

== ENCOUNTER 2022-07-24 12:38 | Emergency (ER) | payer MEDICARE, OTHER ==
--- NOTE | 2022-07-24 12:47 | ERPHSYRPT ---
- History of Present Illness Time Seen by Provider: 07/24/22 12:46 Historian: patient Exam Limitations: no limitations Physician History: This 66-year-old white male patient who was exposed to sawdust inhalation while working and had severe coughing spells causing sudden pain in his left lower ribs. Patient has had this happen before where he had rib fractures following severe coughing spells. He has no anterior chest pain. He has no dizziness or abdominal pain. He is pain is localized in the left lateral lower ribs Timing/Duration: today Activities at Onset: other Quality: sharpness (Coughing) Pain Radiation: no radiation Severity of Pain-Max: moderate Severity of Pain-Current: moderate Associated Symptoms: denies symptoms Previous symptoms: same symptoms as today, no recent treatment Allergies/Adverse Reactions: lisinopril Adverse Reaction (Verified 07/24/22 12:57) Headache Home Medications: Amlodipine Besylate [Norvasc] 2.5 mg PO DAILY 01/18/22 [History] Aspirin [Aspirin EC] 81 mg PO DAILY 01/18/22 [History] Atorvastatin Calcium [Lipitor] 80 mg PO DAILY 01/18/22 [History] Chlorthalidone 25 mg PO DAILY 01/18/22 [History] Metoprolol Tartrate 50 mg [Lopressor 50 MG] 50 mg PO BID 01/18/22 [History] Nitroglycerin 0.4 mg Tablet [Nitrostat 0.4 MG Tablet] 0.4 mg SL UD 01/18/22 [History] Hx Tetanus, Diphtheria Vaccination/Date Given: No Hx Influenza Vaccination/Date Given: No Hx Pneumococcal Vaccination/Date Given: No Travel Risk - International Travel Have you traveled outside of the country in past 3 weeks: No - Coronavirus Screening Are you exhibiting any of the following symptoms?: No Close contact with a COVID-19 positive Pt in past 14-21 Days: No - Vaccine Status Have you recieved a Covid-19 vaccination: Yes 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 Patient was feeling normal prior to the severe coughing spells.) Cardiac: No Symptoms Abdominal/Gastrointestinal: No Symptoms Genitourinary Symptoms: No Symptoms Musculoskeletal: No Symptoms Skin: No Symptoms Neurological: No Symptoms Psychological: No Symptoms Endocrine: No Symptoms Hematologic/Lymphatic: No Symptoms Immunological/Allergic: No Symptoms All Other Systems: Reviewed and Negative - Past Medical History Pertinent Past Medical History: Yes Neurological History: No Pertinent History ENT History: No Pertinent History Cardiac History: Coronary Artery Disease, High Cholesterol, Hypertension, Myocardial Infarction ([place]) Respiratory History: No Pertinent History Endocrine Medical History: No Pertinent History Musculoskeletal History: No Pertinent History GI Medical History: GERD History: No Pertinent History Psycho-Social History: Anxiety Male Reproductive Disorders: No Pertinent History - Past Surgical History Past Surgical History: Yes Neuro Surgical History: No Pertinent History Cardiac: Cardiac Catheterization, Cardiac Stent Respiratory: No Pertinent History Gastrointestinal: No Pertinent History Genitourinary: No Pertinent History Musculoskeletal: No Pertinent History Male Surgical History: No Pertinent History - Social History Smoking Status: Never smoker Exposure to second hand smoke: No Drug Use: none Patient Lives Alone: No - Nursing Vital Signs Nursing Vital Signs: Initial Vital Signs Temperature 98 F 07/24/22 12:57 Pulse Rate 75 07/24/22 12:57 Respiratory Rate 20 07/24/22 12:57 Blood Pressure 154/99 07/24/22 12:57 O2 Sat by Pulse Oximetry 97 07/24/22 12:57 Pain Scale Pain Intensity 9 - Physical Exam General Appearance: mild distress, alert Eye Exam: PERRL/EOMI, eyes nml inspection Ears, Nose, Throat Exam: normal ENT inspection, moist mucous membranes Neck Exam: normal inspection, non-tender, supple, full range of motion Respiratory Exam: lungs clear, other (Rib tenderness left lateral lower ribs. Pain is very localized. 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 I reviewed the impression. No acute cardiopulmonary process present. X-ray of the left ribs shows a nondisplaced rib fracture #9 rib. There is no hemothorax and no pneumothorax. This patient's medical issue is of low complexity. The level of complexity and the work-up performed is based on the review of the patient's past medical history, review of the patient's medication list, review of the patient's drug allergy list, history of present illness and physical findings on examination. Work-up performed was a chest x-ray as well as left rib x-rays. We provided a Percocet pain pill for the patient here in the emergency department and sent a prescription for more Percocet and naproxen to his pharmacy remotely. Counseled pt/family regarding: diagnosis, need for follow-up, rad results Medical Desision Making - Independent Historian Additional History obtained from: Spouse - Discussion of managment Agreed on:: Treatment plan, need for follow-up - Diagnostic Testing Radiological Interpretation: Reviewed by me, Teleradiologist Report - Risk of complications The pt has a mod risk of morbidity or mortality based on: Need for prescription drug management - Departure Departure Disposition: Home Clinical Impression: Rib fracture Condition: Stable Critical Care Time: No Referrals: DAVID MASON MD [Primary Care Provider] - Follow up/PCP as directed Additional Instructions: Ice pack to the area 3 times a day for the next 48 hours. Follow-up with your primary care provider for further evaluation and management of your pain. Take your medication as prescribed. Prescriptions: Oxycodone HCl/Acetaminophen [Percocet 5-325 mg Tablet] 1 each PO Q8H PRN PRN #6 tablet MDD 3 PRN Reason: Moderate To Severe Pain Naproxen 500 mg [Naprosyn 500 MG] 500 mg PO BID #10 tablet
[2022-07-24 13:08] VITALS: BP 154/99
[2022-07-24 13:26] VITALS: PULSE 80; O2SAT 95
--- NOTE | 2022-07-24 13:54 | XRAY ---
Indication: Pain following cough. Comparison: None 2 view left ribs demonstrates nondisplaced lateral 9 rib fracture without hemothorax/pneumothorax. Incidental osteopenia and left perihilar calcified granulomas.
--- NOTE | 2022-07-24 13:56 | XRAY ---
Indication: Left rib pain following cough. Comparison: February 16, 2022 PA/lateral chest again demonstrates normal heart and lungs. Bony thorax intact again with osteopenia and mild degenerative changes. Left ribs reported separately.
[2022-07-24] MEDS ORDERED: PERCOCET TABLET 5/325MG PO STA (14:32)
[2022-07-24] MEDS ORDERED: PERCOCET TABLET 5/325MG ONE (14:34)
== END 2022-07-24 14:46 | disposition home or self-care (01) ==
LOC: ED 12:38
DX: S22.32XA Fracture of one rib, left side, initial encounter for closed fracture (principal); X50.9XXA Other and unspecified overexertion or strenuous movements or postures, initial encounter; I10 Essential (primary) hypertension; E78.5 Hyperlipidemia, unspecified; Z79.891 Long term (current) use of opiate analgesic; Z79.899 Other long term (current) drug therapy
CPT/HCPCS: 71046; 71100; 99283; A9270-GY